=== PATIENT | female | born 1985 | race Caucasian/White ===

== ENCOUNTER 2018-11-29 20:00 | Inpatient (IN) | payer OTHER ==
--- NOTE | 2018-11-29 14:10 | PDGENHP ---
History and Physical History and Physical: CARE: [facility] HPI: Patient is a 33 yo G 1 P 0 @ 40 weeks and 3 days who presents to L&D for induction of labor due to elevated blood pressures at term and proteinuria. EDC: 11/26/18 which is based on LMP of 02/01/18 and confirmed by early Ultrasound at 7 weeks. Her is complicated by: hx of prior LEEP and now diagnosis of pre- eclampsia without severe features. Review of Systems: Constitutional: Denies any fever, chills, or fatigue HEENT: denies any visual changes, difficulty swallowing, hearing loss Cardiovascular: Denies any chest pain, palpitations, leg swelling Respiratory: denies any cough, wheezing, or shortness of breath GI: Denies any nausea, vomiting, diarrhea, constipation : denies any dysuria, urgency, frequency, vaginal bleeding Musculoskeletal: denies any muscle or bone pain Skin: denies any rashes Neuro: denies any headache, seizures, lightheadedness, dizziness, or loss of consciousness Psychiatric: denies any depression, anxiety, or SI/HI thoughts HISTORY: Previous OB history: nullip Social history: , 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 Family history: none Past medical history: denies Past surgical history: wisdom teeth, Leep 2010 Medications: PNV, DHA Allergies (list reaction): NKDA LABS: Rh: A+ ABS: Neg Rubella: Immune HbsAg: NR HIV: NR VDRL: NR 1hr: 92 GC: Neg Chlamydia: Neg Pap: Normal 04/26/18 GBS: neg BMI: (prepreg) = 21.3 PHYSICAL EXAM: Constitutional: WN, A&Ox3 HEENT: normocephalic atraumatic, supple Heart: RRR, no murmur Chest: CTA-B Skin: warm, dry, intact Abdomen: Soft, nontender, gravid SVE: 2-3/50/-2 Extremities: trace edema, negative homans sign Neuro: grossly normal Psych: normal affect assessment: FHT baseline 125 , +accels, no decels, moderate variability Contractions: toco irregular contractions Assessment: 1) 33 yo G 1 P 0 with IUP@ 40.3 weeks 2) GBS neg 3) Cat 1 FHR tracing Plan: 1) Admit to L&D 2) Anticipate
[2018-11-29] MEDS ORDERED: IBUPROFEN 600 MG TAB PO PRN (21:27)
[2018-11-29] MEDS ORDERED: EPSOM SALT 454 GM TP PRN (21:27)
[2018-11-29] MEDS ORDERED: LR 1,000 ML IV PRN (21:27)
[2018-11-29] MEDS ORDERED: TERBUTALINE SULFATE 1 MG/ML VIAL IV PRN (21:27)
[2018-11-29] MEDS ORDERED: OLIVE OIL 118 ML BTL MISC PRN (21:27)
[2018-11-29] MEDS ORDERED: LIDOCAINE 1% 300 MG/30 ML SDV SC PRN (21:27)
[2018-11-29] MEDS ORDERED: OXYTOCIN/RINGERS LACTATE 1,000 ML IV PRN (21:27)
[2018-11-29] MEDS ORDERED: AMMONIA AROMATIC 1 EACH AMP IH PRN (21:27)
[2018-11-29] MEDS ORDERED: MISOPROSTOL 200 MCG TAB PO PRN (21:27)
[2018-11-29] MEDS ORDERED: MISOPROSTOL 50 MCG CAP PO SCH (21:30)
[2018-11-29] MEDS ORDERED: diphenhydrAMINE 25 MG CAP PO PRN (21:52)
[2018-11-29 22:11] LABS: PLATELET COUNT 170 10^3/uL (150-400)
[2018-11-30] MEDS ORDERED: fentaNYL 100 MCG/2 ML INJ IVP ONE (01:30)
[2018-11-30] MEDS ORDERED: AMMONIA AROMATIC 1 EACH AMP IH ONE (03:39)
[2018-11-30] MEDS ORDERED: LIDOCAINE 1% 300 MG/30 ML SDV ONE (03:39)
[2018-11-30] MEDS ORDERED: OLIVE OIL 118 ML BTL MISC ONE (03:39)
[2018-11-30] MEDS ORDERED: OXYTOCIN 10 UNIT/ML VIAL ONE ×2 (03:40→03:42)
[2018-11-30] MEDS ORDERED: MISOPROSTOL 200 MCG TAB ONE (03:40)
[2018-11-30] MEDS ORDERED: TERBUTALINE SULFATE 1 MG/ML VIAL ONE ×2 (03:40→03:42)
--- NOTE | 2018-11-30 03:41 | OBPROG ---
Labor Progress Note Assessment/Plan: Assessment: 1. Term IUP 2. Elevated BP and proteinurea 3. active labor Plan: 1. AIMEE as desired. 11/30/18 03:38 Objective: 11/29/18 21:35 11/29/18 21:35 Patient ABO/Rh A POSITIVE 11/29/18 21:35 Uric Acid 6.9 mg/dL (2.5-6.8) H 11/29/18 21:35 Total Bilirubin 0.3 mg/dL (0.1-1.4) 11/29/18 21:35 Conjugated Bilirubin 0.0 mg/dL (0.0-0.5) 11/29/18 21:35 Unconjugated Bilirubin 0.3 mg/dL (0.0-1.1) 11/29/18 21:35 AST 24 IU/L (14-46) 11/29/18 21:35 ALT 21 IU/L (9-52) 11/29/18 21:35 Lactate Dehydrogenase 488 IU/L (313-618) 11/29/18 21:35 - SVE Dilation (cm): 5 Effacement (%): 90 Membranes: Intact - Contraction Pattern Assessment Current Contraction Pattern: Regular (q3-4) - FHR Assessment Thornton FHR (bpm): 125 FHR Pattern Variability: Moderate FHR Category: 1 Oxytocin Orders Assessment - Pre-Induction/Augmentation Assessment Gestational Age: 40 week(s) and 3 day(s) ICD10 Worksheet Patient Problems: Problems Problem Status Onset Normal labor Acute - ICD10 Problem Qualifiers (1) Normal labor
[2018-11-30] MEDS ORDERED: fentaNYL 100 MCG/2 ML INJ ONE (04:42)
[2018-11-30] MEDS ORDERED: fentaNYL 2MCG/ML/BUP 0.1% RTU 100 ML BAG EP ONE (04:43)
[2018-11-30] MEDS ORDERED: BUPIVACAINE 0.25% 10 ML SDV ONE (04:43)
[2018-11-30] MEDS ORDERED: PHENYLEPHRINE HCL 100 MCG/ML SYR ONE (04:43)
--- NOTE | 2018-11-30 05:20 | OBPROG ---
Labor Progress Note Assessment/Plan: Assessment: 1. Term IUP 2. Elevated BP and proteinurea 3. active labor Plan: 1. AIMEE as desired. 11/30/18 03:38 Subjective/Intrapartum Course: 11/30/18 05:11 pt comfortable with epidural at this time. Objective: 11/29/18 21:35 11/29/18 21:35 Patient ABO/Rh A POSITIVE 11/29/18 21:35 Uric Acid 6.9 mg/dL (2.5-6.8) H 11/29/18 21:35 Total Bilirubin 0.3 mg/dL (0.1-1.4) 11/29/18 21:35 Conjugated Bilirubin 0.0 mg/dL (0.0-0.5) 11/29/18 21:35 Unconjugated Bilirubin 0.3 mg/dL (0.0-1.1) 11/29/18 21:35 AST 24 IU/L (14-46) 11/29/18 21:35 ALT 21 IU/L (9-52) 11/29/18 21:35 Lactate Dehydrogenase 488 IU/L (313-618) 11/29/18 21:35 VSS - SVE Dilation (cm): 9 Effacement (%): 90 Station: -1 Membranes: Intact - Contraction Pattern Assessment Current Contraction Pattern: Irregular (2-4 min) - FHR Assessment Thornton FHR (bpm): 125 FHR Pattern Variability: Moderate FHR Category: 1 Oxytocin Orders Assessment - Pre-Induction/Augmentation Assessment Gestational Age: 40 week(s) and 3 day(s) ICD10 Worksheet Patient Problems: Problems Problem Status Onset Normal labor Acute - ICD10 Problem Qualifiers (1) Normal labor
--- NOTE | 2018-11-30 05:35 | PDANEPAE ---
ANE Past Medical History - Pulmonary History Hx Sleep Apnea: No - Chronic Pain History Chronic Pain: No ANE Review of Systems Review of Systems: ANE Patient History - Allergies Allergies/Adverse Reactions: No Known Allergies Allergy (Unverified 07/29/10 02:27) - Home Medications Home Medications: NO HOME MEDS 07/29/10 [Last Taken Unknown] - Smoking Hx Smoking Status: Never smoked ANE Labs/Vital Signs - Labs Result Diagrams: 11/29/18 21:35 11/29/18 21:35 - Vital Signs Height: 165.1 cm Weight: 72.575 kg ANE Physical Exam - Airway Neck exam: FROM Mallampati Score: Class 1 Mouth exam: normal dental/mouth exam - Pulmonary Pulmonary: no respiratory distress - Cardiovascular Cardiovascular: regular rate and rhythym - ASA Status ASA Status: II ANE Anesthesia Plan Anesthesia Plan: epidural
[2018-11-30] MEDS ORDERED: fentaNYL 2MCG/ML/BUP 0.1% RTU 100 ML EP SCH (06:00)
[2018-11-30] MEDS ORDERED: LR 500 ML IV SCH (06:00)
--- NOTE | 2018-11-30 10:07 | OBPROG ---
Labor Progress Note Assessment/Plan: Assessment: [id number] with IUP@ 40+wks IOL 2/2 PreEclampsia without severe features GBS Negative cat 1 FHR tracing [address] in place Plan: reassess 2hr/PRN anticipate Subjective/Intrapartum Course: 11/30/18 05:11 pt comfortable with epidural at this time. 11/30/18 08:00 Pt was able to rest for a couple hours. Denies any pain or pressure. agreeable to AROM. FOB @ BS and supportive. Objective: 11/29/18 21:35 11/29/18 21:35 Patient ABO/Rh A POSITIVE 11/29/18 21:35 Uric Acid 6.9 mg/dL (2.5-6.8) H 11/29/18 21:35 Total Bilirubin 0.3 mg/dL (0.1-1.4) 11/29/18 21:35 Conjugated Bilirubin 0.0 mg/dL (0.0-0.5) 11/29/18 21:35 Unconjugated Bilirubin 0.3 mg/dL (0.0-1.1) 11/29/18 21:35 AST 24 IU/L (14-46) 11/29/18 21:35 ALT 21 IU/L (9-52) 11/29/18 21:35 Lactate Dehydrogenase 488 IU/L (313-618) 11/29/18 21:35 - SVE Dilation (cm): 9 Effacement (%): 90 Station: 0 Membranes: AROM Amniotic Fluid Color: Clear - Contraction Pattern Assessment Current Contraction Pattern: Irregular (2-4 min) - FHR Assessment Thornton FHR Pattern Variability: Moderate FHR Category: 1 - Procedures Non-surgical Procedures: Amniotomy Oxytocin Orders Assessment - Pre-Induction/Augmentation Assessment Gestational Age: 40 week(s) and 3 day(s) ICD10 Worksheet Patient Problems: Problems Problem Status Onset Normal labor Acute
[2018-11-30] MEDS ORDERED: LR 500 ML IV PRN (11:42)
[2018-11-30] MEDS ORDERED: OXYTOCIN/RINGERS LACTATE 500 ML IV SCH (12:00)
[2018-11-30] MEDS ORDERED: SIMETHICONE 80 MG TAB CHEW PO PRN (14:16)
[2018-11-30] MEDS ORDERED: HYDROCORTISONE 0.5% CREAM TP PRN (14:16)
--- NOTE | 2018-11-30 14:21 | OBDEL ---
Info Type: Vaginal Presentation at Delivery: Vertex L&D Analgesia/Anesthesia Type: Epidural GBS+: No Intrapartum Medications: Generic Name Dose Route Start Last Admin Trade Name Freq PRN Reason Stop Dose Admin Lactated Ringer's 1,000 mls @ 0 mls/hr 11/29/18 21:27 11/30/18 04:15 Lr IV 11/30/18 21:26 1,000 mls PRN PRN Administration SEE PROTOCOL CONDITIONS Protocol Per Protocol Discontinued Medications Generic Name Dose Route Start Last Admin Trade Name Freq PRN Reason Stop Dose Admin Fentanyl 50 mcg 11/30/18 01:30 11/30/18 01:34 Sublimaze IVP 11/30/18 01:31 50 mcg ONCE ONE Administration Misoprostol 50 mcg 11/29/18 21:30 11/29/18 22:37 Cytotec PO 05/28/19 21:29 50 mcg Q4H CAPRI Administration - Hospital Course Intrapartum: 11/30/18 05:11 pt comfortable with epidural at this time. 11/30/18 08:00 Pt was able to rest for a couple hours. Denies any pain or pressure. agreeable to AROM. FOB @ BS and supportive. Indications for Delivery: Preeclampsia Mild Vaginal Delivery - Delivery Provider Delivery Physician/CNM: Janelle Recinos - Labor and Delivery Onset of Contractions Date: 11/29/18 Onset of Contractions Time: 22:37 Onset of Contractions Type: Induced Rupture of Membranes Date: 11/30/18 Rupture of Membranes Time: 07:54 Rupture of Membranes Type: Artificial Amniotic Fluid Color: Clear Dilation Complete Date: 11/30/18 Dilation Complete Time: 10:50 Placenta Delivery Date: 11/30/18 Placenta Delivery Time: 13:44 Total Hours of Labor: 15 Non-surgical Procedures: Amniotomy Laceration: 2nd Degree Repair: 3-0, Vicryl Vaginal Sponge Count Correct: Yes Vaginal Needle Count Correct: Yes EBL: 1336 Delivery Events: None - Medications Labor Augmentation/Induction Methods Used: Pitocin, Misoprostol Data SHERRY: 11/26/18 Gestational Age: 40 week(s) and 4 day(s) Thornton Delivery Date: 11/30/18 Delivery Time: 13:36 Sex of : Female Score (1 Min): 8 Score (5 Min): 9 ICD10 Worksheet Patient Problems: Problems Problem Status Onset Encounter for induction of labor Acute Normal labor Acute Pre-eclampsia during in third trimester, antepartum Acute (spontaneous vaginal delivery) Acute Second degree perineal laceration during delivery Acute - ICD10 Problem Qualifiers (1) Pre-eclampsia during in third trimester, antepartum (2) Encounter for induction of labor (3) (spontaneous vaginal delivery) (4) Second degree perineal laceration during delivery
[2018-11-30] MEDS: ACETAMINOPHEN 325 MG TAB PO PRN (16:31)
--- NOTE | 2018-12-01 07:23 | POSTANESTH ---
Post Anesthetic Evaluation Cardiovascular Status: Normal, Stable Respiratory Status: Normal, Stable Level of Consciousness/Mental Status: Can Participate in Eval, Alert and Oriented Pain Control: Adequate, Prn Tx Ordered Nausea/Vomiting Control: Adequate, Prn Tx Ordered Complications Possibly Related to Anesthesia: None Noted Notes: No TURNER; slight back soreness yesterday, better this morning.
[2018-12-01] MEDS ORDERED: EPSOM SALT 454 GM TP ONE (08:19)
[2018-12-01] MEDS: DOCUSATE SODIUM 100 MG CAP PO PRN (08:22)
[2018-12-01] MEDS: IBUPROFEN 600 MG TAB PO PRN ×2 (08:22→15:22)
--- NOTE | 2018-12-01 11:14 | OBPP ---
Progress Note Assessment/Plan: Assessment: 33 y/o P1 s/p IOL for preeclampsia without severe features ppd #1 going well VSS - BPs 120s/80s Plan: Routine pp care Anticipate d/c tomorrow 12/01/18 11:12 Subjective/ Course: 12/01/18 11:13 Patient is doing well this morning. Reports lochia to be light, pain controlled with oral medication, tolerating regular diet and voiding. is going well. Objective: 11/29/18 21:35 11/29/18 21:35 Patient ABO/Rh A POSITIVE 11/29/18 21:35 Uric Acid 6.9 mg/dL (2.5-6.8) H 11/29/18 21:35 Total Bilirubin 0.3 mg/dL (0.1-1.4) 11/29/18 21:35 Conjugated Bilirubin 0.0 mg/dL (0.0-0.5) 11/29/18 21:35 Unconjugated Bilirubin 0.3 mg/dL (0.0-1.1) 11/29/18 21:35 AST 24 IU/L (14-46) 11/29/18 21:35 ALT 21 IU/L (9-52) 11/29/18 21:35 Lactate Dehydrogenase 488 IU/L (313-618) 11/29/18 21:35 Temp Pulse Resp BP Pulse Ox 36.7 C 81 16 120/85 H 95 12/01/18 10:39 12/01/18 10:39 12/01/18 10:39 12/01/18 10:39 12/01/18 01:49 Uterine Position/Fundal Height: Umbilicus -1 Uterine Tone: Firm
[2018-12-01] MEDS: ACETAMINOPHEN 325 MG TAB PO PRN (15:22)
[2018-12-01] MEDS: FERROUS SULFATE 325 MG TAB PO SCH (15:23)
[2018-12-02 07:51] VITALS: BP 114/76
[2018-12-02] MEDS: ACETAMINOPHEN 325 MG TAB PO PRN (07:59)
[2018-12-02] MEDS: IBUPROFEN 600 MG TAB PO PRN (07:59)
[2018-12-02] MEDS: FERROUS SULFATE 325 MG TAB PO SCH (07:59)
[2018-12-02] MEDS: DOCUSATE SODIUM 100 MG CAP PO PRN (07:59)
--- NOTE | 2018-12-02 09:11 | OBGCSDC ---
General Delivery Information - General Info : 1 Para: 1 Abortions: 0 Type: Vaginal L&D Analgesia/Anesthesia Type: Epidural Admission Date: 11/29/18 Labs: Patient ABO/Rh A POSITIVE 11/29/18 21:35 Hct 34.4 % (38.0-47.0) L 11/29/18 21:35 Temp Pulse Resp BP Pulse Ox 12/02/18 07:48 36.8 C 76 14 114/76 95 12/01/18 20:14 36.9 C 76 14 128/71 H 97 12/01/18 10:39 36.7 C 81 16 120/85 H - Hospital Course Intrapartum: 11/30/18 05:11 pt comfortable with epidural at this time. 11/30/18 08:00 Pt was able to rest for a couple hours. Denies any pain or pressure. agreeable to AROM. FOB @ BS and supportive. : 12/01/18 11:13 Patient is doing well this morning. Reports lochia to be light, pain controlled with oral medication, tolerating regular diet and voiding. is going well. 12/02/18 09:08 S) Pt doing well, reports min pain and bleeding. she is ambulating and voiding without difficulty. She is . She desires discharge home today. O) VSS, afebrile constitutional: WNWF, A&Ox3 HEENT: normocephalic, atraumatic, supple Heart: RRR, No murmur Chest: CTA-B Abdomen: Soft, nontender Uterus: Firm at U-2 Lochia: Minimal rubra Perineum: Intact, healing well Extremities: Trace edema, and negative Maya's sign Neuro: Grossly normal A) 33 year-old P1 S/P - IOL for pre eclampsia without severe features VSS - BPs overall resolved post - most 120s/80s PPD#2 Anemia P) Discharge home today Continue Daily iron supplement Pelvic rest x6wks Discussed danger signs (infection, preeclampsia, depression, heavy bleeding, etc) RTO in 1 week for BP check -2/4/6 weeks 12/02/18 09:38 Vaginal - Delivery Provider Delivery Physician/CNM: Janelle Recinos - Diagnosis Labor: Induced Rupture of Membranes Type: Artificial Amniotic Fluid Color: Clear Laceration: 2nd Degree Repair: 3-0, Vicryl Delivery Events: None - Procedures Non-surgical Procedures: Amniotomy - Delivery Non-surgical Procedures: Amniotomy EBL: 1336 Data SHERRY: 11/26/18 Gestational Age: 40 week(s) and 6 day(s) Thornton Delivery Date: 11/30/18 Delivery Time: 13:36 Sex of : Female [place] Weight (gm): 3505 g Score (1 Min): 8 Score (5 Min): 9 Discharge Information - Discharge Information Prescriptions: Docusate Sodium [Colace 100 MG (*)] 100 mg PO BID PRN #30 cap PRN Reason: Constipation Ferrous Sulfate [Ferrous Sulf 325 MG (*)] 325 mg PO DAILY #60 tab Condition: Good
== END 2018-12-02 11:30 | disposition home or self-care (01) | DRG 807 ==
LOC: FLD 20:00 → FOB 11-30 17:00
PROVIDERS: ADMIT Advanced Practice Midwife; ATTEND Advanced Practice Midwife
PROC: 0KQM0ZZ Repair Perineum Muscle, Open Approach (ICD-10-PCS; principal; 2018-11-30)
PROC: 10E0XZZ Delivery of Products of Conception, External Approach (ICD-10-PCS; principal; 2018-11-30)
PROC: 10907ZC Drainage of Amniotic Fluid, Therapeutic from Products of Conception, Via Natural or Artificial Opening (ICD-10-PCS; principal; 2018-11-30)
DX: O14.04 Mild to moderate pre-eclampsia, complicating childbirth (principal); Z37.0 Single live birth; Z3A.40 40 weeks gestation of pregnancy; O70.1 Second degree perineal laceration during delivery
CPT/HCPCS: J2370; J2590; J3010; J3105